=== PATIENT | female | born 1975 | race Caucasian/White ===

== ENCOUNTER 2022-01-09 09:47 | Outpatient (CLI) | payer BC | END 2022-01-09 09:48 | disposition critical access hospital (66) | LOC: EMS 09:47 | DX: S69.91XA Unspecified injury of right wrist, hand and finger(s), initial encounter (principal); W17.81XA Fall down embankment (hill), initial encounter; Y93.01 Activity, walking, marching and hiking; Y92.89 Other specified places as the place of occurrence of the external cause | CPT/HCPCS: A0425; A0427 ==